=== PATIENT | female | born 1985 | race Caucasian/White ===

== ENCOUNTER 2022-09-05 13:01 | Emergency (ER) | payer OTHER ==
[2022-09-05 13:18] VITALS: BP 136/91
[2022-09-05] MEDS ORDERED: CYCLOBENZAPRINE 10 MG TABLET PO STA (16:26)
[2022-09-05] MEDS ORDERED: LIDOCAINE PATCH 5% TOP STA (16:26)
--- NOTE | 2022-09-05 16:28 | ED Physician Documentation ---
PD HPI BACK PAIN - Stated complaint Stated Complaint: BACK PX - Chief complaint Chief Complaint: Back Pain - History obtained from History obtained from: Patient - Additional information Additional information: Pt is a 37 yo F with back pain worsening for the past 4 days but has had chronic low back pain for 11 years since being in the . She has had prior xrays done and reports having degenerative disk disease. Pt reports current flare up started several days ago with no known injury or mechanism. She describes pain in the low back that is sharp and worse with ambulation. It does not radiate. SHe was able to walk to the bathroom this morning but it was painful. She denies saddle anesthesia, bowel/bladder incontinence, fever, IV drug use, known malignancy, injections to back. She saw her PCP yesterday and started her on gabapentin 100mg daily which she took for the first time this morning. She has also tried naproxen. She denies every having other imaging other than an xray a year ago. She was having more pain with walking this morning and her PCP advised her to come to the ED. Review of Systems Constitutional: denies: Fever Cardiac: denies: Chest pain / pressure Respiratory: denies: Dyspnea GI: denies: Abdominal Pain, Vomiting : denies: Unable to Void, Incontinent Musculoskeletal: reports: Back pain. denies: Extremity pain Neurologic: denies: Headache PD PAST MEDICAL HISTORY - Present Medications Home Medications: Ambulatory Orders Medication Instructions Recorded Confirmed Cyclobenzaprine [Flexeril] 10 mg PO TID PRN #15 tablet 09/05/22 Gabapentin [Neurontin] 100 mg PO DAILY 09/05/22 09/05/22 Lidocaine Patch 5% [Lidoderm Patch] 1 patch TOP DAILY PRN #10 patch 09/05/22 cloNIDine [Catapres] 0.1 mg PO BID PRN 09/05/22 09/05/22 lamoTRIgine [Subvenite] 100 mg PO DAILY 09/05/22 09/05/22 - Allergies Allergies/Adverse Reactions: Allergies Allergy/AdvReac Type Severity Reaction Status Date / Time COVID-19 vaccine, mRNA, AdvReac Emesis Verified 09/05/22 13:18 [id number], L human papillomavirus AdvReac Emesis Verified 09/05/22 13:18 vaccine, quadr [From Gardasil (PF)] PD ED PE NORMAL - General General: Alert and oriented X 3, No acute distress, Well developed/nourished - HEENT HEENT: Atraumatic - Neck Neck: Supple, no meningeal sign, No bony TTP - Cardiac Cardiac: RRR, Strong equal pulses - Respiratory Respiratory: No respiratory distress, Clear bilaterally - Abdomen Abdomen: Soft, Non tender, Non distended - Back Back: Other (Mild midline low lumbar and L paralumbar TTP, no step offs or deformities) - Derm Derm: Warm and dry - Extremities Extremities: No deformity, No tenderness to palpate - Neuro Neuro: Alert and oriented X 3, No motor deficit, No sensory deficit, Other (Normal plantar and great toe flexion/extension b/l ) Results - Vitals Vitals: Vital Signs - 24 hr 09/05/22 13:14 Temperature 36.8 C Heart Rate 82 Respiratory 14 Rate Blood Pressure 136/91 H O2 Saturation 96 Oxygen O2 Source Room air PD Medical Decision Making - ED course ED course: Pt with atraumatic low back pain, chronic for 11 years, with no red flag signs/symptoms. Pt inquired about getting an xray and I explained what an xray would and would not look for. No signs of cord compression/cauda equina/epidural abscess/hematoma to warrant emergent MRI. I gave the patient the option for an xray and she has decided to hold off. Pt is ambulatory here. DIscussed options for treatment of her symptoms and she is comfortable trying flexeril and lidocaine patches as these have helped her in the past. She is advised on concerning symptoms to return for and plans to have close follow up with PCP. Departure - Departure Disposition: 01 Home, Self Care Clinical Impression: Low back pain Condition: Stable Instructions: ED Neck Back Pain General Follow-Up: [facility] [Provider Group] Prescriptions: Cyclobenzaprine [Flexeril] 10 mg PO TID PRN #15 tablet PRN Reason: Spasms Lidocaine Patch 5% [Lidoderm Patch] 1 patch TOP DAILY PRN #10 patch PRN Reason: pain Comments: I have sent prescriptions for medications to [facility] in [place]. Please make sure to take these as prescribed. Note that Flexeril can make you drowsy and I would not recommend driving or operating any machinery while taking this medication.I would also recommend close follow-up with [facility] You may need further evaluation for your back including imaging such as an MRI which can be ordered as an outpatient. You develop any worsening symptoms such as trouble controlling your urine or bowel movements, weakness in your legs, fevers or any new concerns please consider return to the emergency department. Discharge Date/Time: 09/05/22 16:35
== END 2022-09-05 16:35 | disposition home or self-care (01) ==
LOC: ED 13:01
DX: M54.50 Low back pain, unspecified (principal)
CPT/HCPCS: 99282; 99283; A9270

== ENCOUNTER 2024-01-12 14:04 | Outpatient (CLI) | payer OTHER ==
--- NOTE | 2024-01-12 20:38 | MRI Report ---
PROCEDURE: Lumbar Spine WO INDICATIONS: LOW BACK PAIN TECHNIQUE: Multiplanar multisequential MRI images of the lumbar spine were obtained without intraven ous contrast. COMPARISON: None. FINDINGS: Alignment and Curvature: There is normal bony alignment. Bone Marrow: Marrow is of normal overall signal. No acute vertebral body compression fractures. No sacral fractures. Spinal Cord: Conus medullaris terminates at the L1 level. Visualized cord demonstrates normal signa l and size. Paraspinal Soft Tissues: Unremarkable perivertebral soft tissues. T12-L1: Normal in appearance. L1-L2: Normal in appearance. L2-L3: Normal in appearance. L3-L4: Normal in appearance. L4-L5: Large central disc protrusion results in moderate central and no foraminal stenosis. L5-S1: Degenerative endplate changes. No central or foraminal stenosis. IMPRESSION: Large L4-5 disc protrusion with moderate foraminal stenosis Reviewed by: Pedro López MD on 01/12/2024 7:36 PM TYREE Approved by: Pedro López MD on 01/12/2024 7:36 PM AKDT Station ID: [id number]
== END 2024-01-12 14:05 | disposition home or self-care (01) ==
LOC: DI 14:04
PROVIDERS: ATTEND Family Medicine
DX: M51.26 Other intervertebral disc displacement, lumbar region (principal); M47.817 Spondylosis without myelopathy or radiculopathy, lumbosacral region; M48.061 Spinal stenosis, lumbar region without neurogenic claudication